=== PATIENT | female | born 1975 | race African-American/Black ===

== ENCOUNTER 2017-04-09 11:07 | Emergency (ER) | payer OTHER, SELFPAY ==
[2017-04-09] MEDS ORDERED: Ibuprofen 800 MG TAB ONE (11:23)
--- NOTE | 2017-04-09 12:01 | RAD ---
LEFT ANKLE THREE VIEWS HISTORY: Left ankle pain. COMPARISON: 12/09/2015 FINDINGS: The ankle mortise is intact. Mild osteophytosis is present. No acute fracture or dislocation. IMPRESSION: No acute osseous abnormalities are demonstrated. POS: [facility]
== END 2017-04-09 12:01 | disposition home or self-care (01) ==
LOC: NAV ERS 11:07
DX: M25.572 Pain in left ankle and joints of left foot (principal); I10 Essential (primary) hypertension; I42.9 Cardiomyopathy, unspecified; Z86.73 Personal history of transient ischemic attack (TIA), and cerebral infarction without residual deficits; Z79.01 Long term (current) use of anticoagulants; Z79.899 Other long term (current) drug therapy

== ENCOUNTER 2017-04-14 17:25 | Emergency (ER) | payer SELFPAY ==
[2017-04-14] MEDS ORDERED: Enoxaparin Sodium 100 MG/ML SYRINGE ONE (17:41)
[2017-04-14] MEDS ORDERED: Nitroglycerin 2% Ointment 1 INCH/1 GM Packet ONE (17:41)
[2017-04-14 18:31] LABS: #Basophils 0.1 thou/uL (0.0-0.2); #Eosinphils 0.2 thou/uL (0.0-0.7); #Lymphocytes 2.3 thou/uL (1.20-3.40); #Monocytes 0.7 thou/uL (0.11-0.59); #Neutrophils 4.6 thou/uL (1.40-6.50); %Basophils 1.1 % (0.0-1.0); %Eosinophils 2.2 % (0.0-10.0); %Monocytes 8.9 % (0.0-10.0); %Neutrophils 58.7 % (42.0-75.0); Hemoglobin 10.6 g/dL (12.0-16.0); Mean Corpuscular HGB CONC 30.1 g/dL (32.0-36.0); Mean Corpuscular Hemoglobin 19.6 pg (27.0-31.0); Mean Corpuscular Volume 65.2 fl (81.0-99.0); Platelet Count 171 thou/uL (130-400); RBC Distribution Width 13.3 % (11.5-14.5); Red Blood Cell (RBC) Count 5.42 mill/uL (4.20-5.40); White Blood Cell (WBC) Count 7.8 thou/uL (4.8-10.8)
[2017-04-14 18:35] LABS: Prothrombin Time 13.4 SEC (12.0-14.7)
[2017-04-14 18:37] LABS: D-Dimer Test 0.43 *mcg/mL (0.27-0.43)
[2017-04-14] MEDS ORDERED: Ondansetron HCl/PF 4 MG/2 ML Vial ONE (18:39)
[2017-04-14 18:44] LABS: ALT (SGPT) 10 U/L (8-55); AST (SGOT) 17 U/L (5-34); Albumin 3.6 g/dL (3.5-5.0); Alkaline Phosphatase 86 U/L (40-150); Anion Gap 16 mmol/L (10-20); BUN (Urea Nitrogen) 12 mg/dL (7.0-18.7); Bilirubin, Total 0.5 mg/dL (0.2-1.2); Calc. Creatinine Clearance 0 mL/min (70-130); Calcium 8.5 mg/dL (7.8-10.44); Carbon Dioxide 21 mmol/L (22-29); Chloride 108 mmol/L (98-107); Estimated GFR-MDRD Greater than 90; Globulin 3.3 g/dL (2.4-3.5); Glucose 86 mg/dL (70-105); Lipase 19 U/L (8-78); Potassium 3.5 mmol/L (3.5-5.1); Protein, Total 6.9 g/dL (6.0-8.3); Sodium 141 mmol/L (136-145)
[2017-04-14 18:45] LABS: CKMB 2.8 ng/mL (0-6.6); Troponin I Less than 0.010 ng/mL (< 0.028)
--- NOTE | 2017-04-14 18:52 | RAD ---
PORTABLE CHEST: 04/14/17 COMPARISON: 05/13/16 study. HISTORY: Chest pain. The heart size is markedly enlarged. There are postop sternotomy changes. Retrocardiac region is dif ficult to assess due to the heart size. The lungs appear clear of infiltrates. There are no signs of failure. IMPRESSION: Marked cardiomegaly. POS: [facility]
== END 2017-04-14 20:00 | disposition short-term general hospital (02) ==
LOC: NAV ERS 17:25
DX: I09.9 Rheumatic heart disease, unspecified (principal); I10 Essential (primary) hypertension; I42.9 Cardiomyopathy, unspecified; Z95.2 Presence of prosthetic heart valve
CPT/HCPCS: 71010; 80053; 82553; 83690; 83880; 84484; 85025; 85379; 85610; 93005; 96372; 96374; J1650; J2405

== ENCOUNTER 2017-10-27 09:42 | Emergency (ER) | payer OTHER, SELFPAY ==
[2017-10-27] MEDS ORDERED: Acetaminophen 500 MG TAB ONE (10:33)
--- NOTE | 2017-10-27 10:57 | RAD ---
THREE VIEWS OF THE LEFT ANKLE: INDICATION: Left ankle pain for 3 days. COMPARISON: Prior exam dated 04/09/2017. FINDINGS: No acute fracture or subluxation is evident. Enthesopathic change off of the calcaneus is similar. Ankle mortise and talar dome are preserved. IMPRESSION: No acute osseous abnormality. POS: [facility]
== END 2017-10-27 11:00 | disposition home or self-care (01) ==
LOC: NAV ERS 09:42
DX: M10.9 Gout, unspecified (principal); I10 Essential (primary) hypertension; E66.9 Obesity, unspecified; Z86.73 Personal history of transient ischemic attack (TIA), and cerebral infarction without residual deficits; Z79.899 Other long term (current) drug therapy

== ENCOUNTER 2018-01-12 09:49 | Emergency (ER) | payer OTHER ==
[2018-01-12] MEDS ORDERED: HYDROcodone/Acetaminophen 5/325 mg Tablet ONE (10:45)
[2018-01-12] MEDS ORDERED: Adacel (T-DAP) 0.5 ML VIAL ONE (10:45)
--- NOTE | 2018-01-12 11:02 | RAD ---
LEFT ANKLE 3 VIEWS: HISTORY: Bitten by a dog at the Achilles tendon area in the left ankle, left ankle pain. FINDINGS/IMPRESSION: The ankle mortise is maintained. No acute fracture or dislocation is seen. A plantar calcaneal spur is present. There is a small 7mm focal hyperdensity in the posterior soft tissues. This was not se en on the exam of 10/27/17. Clinical correlation is recommended. POS: [facility]
--- NOTE | 2018-01-12 11:05 | RAD ---
LEFT FOOT 3 VIEWS: HISTORY: Bitten by a dog, left foot pain. FINDINGS/IMPRESSION: No fracture, dislocation, or bony destruction is seen. There is a small 7mm focal hyperdensity in th e soft tissues in the posterior aspect of the ankle which was not seen on the exam of 09/24/07. Clin ical correlation is recommended. POS: [facility]
[2018-01-12] MEDS ORDERED: Clindamycin 150 MG CAP ONE (11:30)
[2018-01-12] MEDS ORDERED: Sulfameth/Trimethoprim DS 800-160mg TAB ONE (11:30)
[2018-01-12] MEDS ORDERED: Bacitracin Zinc 1 Packet ONE (11:40)
== END 2018-01-12 11:58 | disposition home or self-care (01) ==
LOC: NAV ERS 09:49
DX: S91.352A Open bite, left foot, initial encounter (principal); E66.9 Obesity, unspecified; I42.9 Cardiomyopathy, unspecified; I09.9 Rheumatic heart disease, unspecified; I10 Essential (primary) hypertension; Z86.73 Personal history of transient ischemic attack (TIA), and cerebral infarction without residual deficits; Z79.82 Long term (current) use of aspirin; Z79.899 Other long term (current) drug therapy; W54.0XXA Bitten by dog, initial encounter
CPT/HCPCS: 90471; 90715

== ENCOUNTER 2018-01-12 22:10 | Emergency (ER) | payer OTHER | END 2018-01-12 22:55 | disposition home or self-care (01) | LOC: NAV ERS 22:10 | DX: S81.852D Open bite, left lower leg, subsequent encounter (principal); I10 Essential (primary) hypertension; E66.9 Obesity, unspecified; Z79.01 Long term (current) use of anticoagulants; Z79.82 Long term (current) use of aspirin; Z86.73 Personal history of transient ischemic attack (TIA), and cerebral infarction without residual deficits; W54.0XXD Bitten by dog, subsequent encounter | CPT/HCPCS: 99282 ==

== ENCOUNTER 2018-02-16 20:16 | Emergency (ER) | payer OTHER ==
--- NOTE | 2018-02-16 21:31 | RAD ---
ACUTE ABDOMINAL SERIES: 02/16/18 Three views. INDICATION: Abdominal pain. FINDINGS: The cardiac silhouette is enlarged. There is mild prominence of pulmonary vasculature. Left lung base is obscured by the cardiac silhouette. Mild patchy right basilar opacity is seen. Bowel gas pattern is nonobstructed. Phleboliths overlie the pelvis. There is evidence of prior sternotomy. IMPRESSION: 1. Prominent cardiac silhouette. 2. No free air or evidence to indicate bowel obstruction. POS: [facility]
[2018-02-16 21:44] LABS: Bilirubin Small (Negative); Blood, Urine Negative (Negative); Glucose, Urine (Dipstick) Negative (Negative); Leukocyte Small (Negative); Nitrite Negative (Negative); Protein, Urine (Dipstick) 30 mg/dL (Neg-Trace); Specific Gravity, Urine 1.025 (1.005-1.030)
[2018-02-16 21:51] LABS: Clarity SL HAZY (Clear)
[2018-02-16 21:55] LABS: Bacteria/HPF 1+ HPF (None Seen); RBC/HPF 0-3 HPF (0-3)
== END 2018-02-16 22:25 | disposition home or self-care (01) ==
LOC: NAV ERS 20:16
DX: K59.00 Constipation, unspecified (principal); I10 Essential (primary) hypertension; E66.9 Obesity, unspecified; I34.1 Nonrheumatic mitral (valve) prolapse; I42.9 Cardiomyopathy, unspecified; Z86.73 Personal history of transient ischemic attack (TIA), and cerebral infarction without residual deficits; Z79.82 Long term (current) use of aspirin; Z79.01 Long term (current) use of anticoagulants
CPT/HCPCS: 74022; 81003; 81015; 93005

== ENCOUNTER 2018-02-24 10:18 | Emergency (ER) | payer OTHER | END 2018-02-24 11:00 | disposition home or self-care (01) | LOC: NAV ERS 10:18 | DX: K59.00 Constipation, unspecified (principal); I10 Essential (primary) hypertension; Z86.73 Personal history of transient ischemic attack (TIA), and cerebral infarction without residual deficits; E66.9 Obesity, unspecified; I34.1 Nonrheumatic mitral (valve) prolapse; Z79.82 Long term (current) use of aspirin; Z79.01 Long term (current) use of anticoagulants | CPT/HCPCS: 99283 ==

== ENCOUNTER 2018-02-28 08:20 | Emergency (ER) | payer OTHER ==
[2018-02-28] MEDS ORDERED: Iopamidol 370 76% 100 ML VIAL ONE (09:00)
[2018-02-28 09:09] LABS: Bilirubin Moderate (Negative); Blood, Urine Moderate (Negative); Clarity Slightly Cloudy (Clear); Glucose, Urine (Dipstick) Negative (Negative); Leukocyte Large (Negative); Nitrite Negative (Negative); Protein, Urine (Dipstick) > or equal to 300 mg/dL (Neg-Trace)
[2018-02-28 09:12] LABS: Specific Gravity, Urine 1.025 (1.002-1.036)
[2018-02-28] MEDS ORDERED: Ondansetron HCl/PF 4 MG/2 ML Vial ONE (09:22)
[2018-02-28] MEDS ORDERED: Sodium Chloride 0.9% 1,000 ML ONE ×2 (09:22→10:50)
[2018-02-28 09:23] LABS: Bacteria/HPF 1+ HPF (None Seen); Other Microscopic Description NO; Trichomonas/HPF 1+ HPF (None Seen)
[2018-02-28 10:05] LABS: Hemoglobin 11.1 g/dL (12.0-16.0); Mean Corpuscular HGB CONC 29.3 g/dL (32.0-36.0); Mean Corpuscular Hemoglobin 19.7 pg (27.0-31.0); Mean Corpuscular Volume 67.2 fl (81.0-99.0); Mean Platelet Volume 8.4 fL (7.4-10.4); Platelet Count 287 thou/uL (130-400); RBC Distribution Width 15.9 % (11.5-14.5); Red Blood Cell (RBC) Count 5.66 mill/uL (4.20-5.40); White Blood Cell (WBC) Count 7.8 thou/uL (4.8-10.8)
[2018-02-28 10:16] LABS: ALT (SGPT) 22 U/L (8-55); AST (SGOT) 27 U/L (5-34); Albumin 3.7 g/dL (3.5-5.0); Alkaline Phosphatase 71 U/L (40-150); Anion Gap 14 mmol/L (10-20); BUN (Urea Nitrogen) 17 mg/dL (7.0-18.7); Bilirubin, Total 2.4 mg/dL (0.2-1.2); CK (CPK) 122 U/L (29-168); Calc. Creatinine Clearance 0 mL/min (70-130); Calcium 8.7 mg/dL (7.8-10.44); Carbon Dioxide 20 mmol/L (22-29); Chloride 112 mmol/L (98-107); Estimated GFR-MDRD Greater than 90; Globulin 2.9 g/dL (2.4-3.5); Glucose 116 mg/dL (70-105); Lipase 10 U/L (8-78); Potassium 3.5 mmol/L (3.5-5.1); Protein, Total 6.6 g/dL (6.0-8.3); Sodium 142 mmol/L (136-145)
[2018-02-28 10:24] LABS: #Basophils 0.1 thou/uL (0.0-0.2); #Eosinphils 0.1 thou/uL (0.0-0.7); #Monocytes 0.9 thou/uL (0.11-0.59); #Neutrophils 4.7 thou/uL (1.40-6.50); %Basophils 1.2 % (0.0-1.0); %Eosinophils 0.9 % (0.0-10.0); %Lymphocytes 26.2 % (21.0-51.0); %Monocytes 11.1 % (0.0-10.0); %Neutrophils 60.6 % (42.0-75.0)
[2018-02-28 10:25] LABS: MDiff Complete? YES; Microcytosis MODERATE=15-30 cells (100X) (0-5/hpf); Ovalocytes MODERATE= 6-15 cells (100X) (0-1/hpf); PLT Morphology Comment Appears Adequate; Target Cells MODERATE= 6-15 cells (100X) (0-1/hpf)
[2018-02-28 10:26] LABS: Anisocytosis MODERATE=16-30 cells (100X) (0-5/hpf)
[2018-02-28] MEDS ORDERED: metroNIDAZOLE 500 MG/100 ML BAG ONE (10:49)
[2018-02-28] MEDS ORDERED: Metoprolol Tartrate 5 MG/5 ML VIAL ONE (10:51)
[2018-02-28 10:52] LABS: CKMB 2.4 ng/mL (0-6.6)
[2018-02-28 11:03] LABS: INR-International Normal Ratio 1.5; PTT 46.2 SEC (22.9-36.1); Prothrombin Time 18.5 SEC (12.0-14.7)
[2018-02-28 11:04] LABS: D-Dimer Test 2.33 *mcg/mL (0.27-0.43)
[2018-02-28] MEDS ORDERED: Furosemide 40 MG/4 ML VIAL ONE (11:35)
--- NOTE | 2018-02-28 12:07 | CT ---
CONTRAST ENHANCED CT IMAGES ABDOMEN AND PELVIS: HISTORY: Right lower quadrant pain. FINDINGS: IV contrast was given. CT images demonstrate bilateral pleural effusions. A prosthetic mitral valve is seen. There is some left ventricular and left atrial enlargement. A small pericardial effusion is seen. The liver and spleen are unremarkable. The gallbladder and pancreas are unremarkable. Adrenal gland s unremarkable. There may be some nonobstructing renal calculi on the right, difficult to determine due to the iodinated contrast in the collecting systems seen in both kidneys. No evidence or periaortic lymphadenopathy is seen. A normal appendix is seen. No significant evidence of bowel obstruction seen. No evidence of free intraperitoneal fluid or air seen. IMPRESSION: 1. Bilateral pleural effusions. 2. Pericardial effusion. POS: [facility]
== END 2018-02-28 13:37 | disposition short-term general hospital (02) ==
LOC: NAV ERS 08:20
DX: I48.91 Unspecified atrial fibrillation (principal); A59.01 Trichomonal vulvovaginitis; R17 Unspecified jaundice; I38 Endocarditis, valve unspecified; I11.0 Hypertensive heart disease with heart failure; I50.9 Heart failure, unspecified; E66.9 Obesity, unspecified; Z79.891 Long term (current) use of opiate analgesic; Z86.73 Personal history of transient ischemic attack (TIA), and cerebral infarction without residual deficits; Z79.82 Long term (current) use of aspirin
CPT/HCPCS: 74177; 80053; 81003; 81015; 82150; 82550; 82553; 83690; 83880; 84484; 85025; 85379; 85610; 85730; 87086; 93005; 94760; 96361; 96365; 96375; J1940; J2405; J7050

== ENCOUNTER 2018-04-17 12:42 | Emergency (ER) | payer OTHER, SELFPAY ==
[2018-04-17] MEDS ORDERED: Sodium Chloride 0.9% 500 ML ONE (12:56)
[2018-04-17] MEDS ORDERED: Fentanyl 100 MCG/2 ML VIAL ONE (13:08)
[2018-04-17 13:21] LABS: INR-International Normal Ratio 2.1; PTT 47.7 SEC (22.9-36.1); Prothrombin Time 23.9 SEC (12.0-14.7)
--- NOTE | 2018-04-17 13:21 | RAD ---
AP VIEW CHEST: HISTORY: Left-sided chest pain for 20 minutes. FINDINGS: AP view chest is obtained on 04/17/18. Comparison is made to previous exam from 04/14/17. AP view chest demonstrates sternotomy wires seen. Cardiomegaly noted. There is an area of opacity i n the left lung base compatible with a left-sided pleural effusion. Radiographic appearance of the c hest is stable and unchanged. The right lung is well aerated. IMPRESSION: Left-sided pleural effusion and cardiomegaly. POS: [facility]
[2018-04-17] MEDS ORDERED: Ondansetron HCl/PF 4 MG/2 ML Vial ONE (13:22)
[2018-04-17 13:23] LABS: #Basophils 0.1 thou/uL (0.0-0.2); #Eosinphils 0.2 thou/uL (0.0-0.7); #Lymphocytes 2.6 thou/uL (1.20-3.40); #Monocytes 0.8 thou/uL (0.11-0.59); #Neutrophils 4.9 thou/uL (1.40-6.50); %Basophils 1.1 % (0.0-1.0); %Eosinophils 2.5 % (0.0-10.0); %Lymphocytes 30.4 % (21.0-51.0); %Monocytes 9.5 % (0.0-10.0); %Neutrophils 56.5 % (42.0-75.0); Hemoglobin 10.5 g/dL (12.0-16.0); Mean Corpuscular HGB CONC 29.3 g/dL (32.0-36.0); Mean Corpuscular Hemoglobin 19.1 pg (27.0-31.0); Mean Corpuscular Volume 65.2 fl (81.0-99.0); Mean Platelet Volume 9.4 fL (7.4-10.4); Platelet Count 243 thou/uL (130-400); RBC Distribution Width 16.8 % (11.5-14.5); Red Blood Cell (RBC) Count 5.48 mill/uL (4.20-5.40); White Blood Cell (WBC) Count 8.6 thou/uL (4.8-10.8)
[2018-04-17 13:28] LABS: ALT (SGPT) 22 U/L (8-55); AST (SGOT) 31 U/L (5-34); Albumin 4.2 g/dL (3.5-5.0); Alkaline Phosphatase 86 U/L (40-150); Anion Gap 14 mmol/L (10-20); BUN (Urea Nitrogen) 16 mg/dL (7.0-18.7); Bilirubin, Total 1.6 mg/dL (0.2-1.2); Calc. Creatinine Clearance 0 mL/min (70-130); Calcium 9.3 mg/dL (7.8-10.44); Carbon Dioxide 22 mmol/L (22-29); Chloride 107 mmol/L (98-107); Estimated GFR-MDRD Greater than 90; Globulin 3.2 g/dL (2.4-3.5); Glucose 107 mg/dL (70-105); Potassium 3.7 mmol/L (3.5-5.1); Protein, Total 7.4 g/dL (6.0-8.3); Sodium 139 mmol/L (136-145)
[2018-04-17 13:31] LABS: CKMB 2.2 ng/mL (0-6.6); Troponin I 0.011 ng/mL (< 0.028)
== END 2018-04-17 14:34 | disposition short-term general hospital (02) ==
LOC: NAV ERS 12:42
DX: I48.91 Unspecified atrial fibrillation (principal); K59.00 Constipation, unspecified; E66.9 Obesity, unspecified; I11.0 Hypertensive heart disease with heart failure; I50.9 Heart failure, unspecified; I34.1 Nonrheumatic mitral (valve) prolapse; I09.1 Rheumatic diseases of endocardium, valve unspecified; Z86.73 Personal history of transient ischemic attack (TIA), and cerebral infarction without residual deficits; Z79.82 Long term (current) use of aspirin; Z79.899 Other long term (current) drug therapy; Z79.01 Long term (current) use of anticoagulants
CPT/HCPCS: 71045; 80053; 82553; 83880; 84484; 85025; 85610; 85730; 93005; 96374; 96375; J2405; J3010; J7050

== ENCOUNTER 2018-10-12 17:31 | Emergency (ER) | payer OTHER ==
[2018-10-12] MEDS ORDERED: Fentanyl 100 MCG/2 ML VIAL ONE ×2 (18:43→22:59)
[2018-10-12 18:47] LABS: #Basophils 0.1 thou/uL (0.0-0.2); #Eosinphils 0.2 thou/uL (0.0-0.7); #Lymphocytes 2.7 thou/uL (1.20-3.40); #Monocytes 0.6 thou/uL (0.11-0.59); #Neutrophils 3.5 thou/uL (1.40-6.50); %Basophils 1.3 % (0.0-1.0); %Eosinophils 2.5 % (0.0-10.0); %Lymphocytes 38.2 % (21.0-51.0); %Monocytes 7.9 % (0.0-10.0); %Neutrophils 50.1 % (42.0-75.0); Hemoglobin 10.8 g/dL (12.0-16.0); Mean Corpuscular HGB CONC 29.8 g/dL (32.0-36.0); Mean Corpuscular Volume 67.1 fL (78.0-98.0); Platelet Count 212 thou/uL (130-400); RBC Distribution Width 12.9 % (11.5-14.5); Red Blood Cell (RBC) Count 5.39 mill/uL (4.20-5.40)
[2018-10-12 18:49] LABS: Prothrombin Time 22.4 SEC (12.0-14.7)
[2018-10-12 18:58] LABS: ALT (SGPT) 15 U/L (8-55); AST (SGOT) 23 U/L (5-34); Alkaline Phosphatase 79 U/L (40-150); Anion Gap 14 mmol/L (10-20); BUN (Urea Nitrogen) 18 mg/dL (7.0-18.7); Bilirubin, Total 0.6 mg/dL (0.2-1.2); CK (CPK) 280 U/L (29-168); Calc. Creatinine Clearance 0 mL/min (70-130); Calcium 9.4 mg/dL (7.8-10.44); Carbon Dioxide 23 mmol/L (22-29); Chloride 109 mmol/L (98-107); Estimated GFR-MDRD Greater than 90; Globulin 3.3 g/dL (2.4-3.5); Glucose 90 mg/dL (70-105); Potassium 3.5 mmol/L (3.5-5.1); Protein, Total 7.3 g/dL (6.0-8.3); Sodium 142 mmol/L (136-145)
--- NOTE | 2018-10-12 19:28 | RAD ---
PORTABLE CHEST: 10/12/18 HISTORY: Chest pain, left arm numbness. COMPARISON: 04/17/18 study. Heart size is enlarged. There are postop sternotomy changes. The lungs are clear of infiltrates. Ther e are no signs of failure. IMPRESSION: Cardiomegaly. POS: [facility]
[2018-10-12] MEDS ORDERED: Ondansetron PF 4 MG/2 ML Vial ONE (23:31)
[2018-10-12 23:40] LABS: Troponin I Less than 0.010 ng/mL (< 0.028)
== END 2018-10-13 00:34 | disposition short-term general hospital (02) ==
LOC: NAV ERS 17:31
DX: M25.512 Pain in left shoulder (principal); I48.91 Unspecified atrial fibrillation; I11.0 Hypertensive heart disease with heart failure; I50.9 Heart failure, unspecified; Z86.73 Personal history of transient ischemic attack (TIA), and cerebral infarction without residual deficits; E66.9 Obesity, unspecified; Z79.899 Other long term (current) drug therapy; Z79.82 Long term (current) use of aspirin
CPT/HCPCS: 36415; 71045; 80053; 82550; 84484; 85025; 85610; 85730; 93005; 96374; 96375; 96376; J2405; J3010

== ENCOUNTER 2019-01-12 13:28 | Emergency (ER) | payer OTHER | END 2019-01-12 14:20 | disposition home or self-care (01) | LOC: NAV ERS 13:28 | DX: M79.604 Pain in right leg (principal); I11.0 Hypertensive heart disease with heart failure; I50.9 Heart failure, unspecified; I48.91 Unspecified atrial fibrillation; I09.9 Rheumatic heart disease, unspecified; E66.9 Obesity, unspecified; Z79.82 Long term (current) use of aspirin; Z79.899 Other long term (current) drug therapy; Z79.891 Long term (current) use of opiate analgesic | CPT/HCPCS: 99281 ==

== ENCOUNTER 2019-01-26 10:56 | Emergency (ER) | payer OTHER ==
[2019-01-26 12:12] LABS: INR-International Normal Ratio 2.1
== END 2019-01-26 12:30 | disposition home or self-care (01) ==
LOC: NAV ERS 10:56
DX: D68.8 Other specified coagulation defects (principal); I11.0 Hypertensive heart disease with heart failure; I50.9 Heart failure, unspecified; I48.91 Unspecified atrial fibrillation; E66.9 Obesity, unspecified; Z86.73 Personal history of transient ischemic attack (TIA), and cerebral infarction without residual deficits; Z79.891 Long term (current) use of opiate analgesic; Z79.899 Other long term (current) drug therapy; Z79.82 Long term (current) use of aspirin
CPT/HCPCS: 85610; 99283

== ENCOUNTER 2019-02-28 21:55 | Emergency (ER) | payer OTHER ==
[~2019-02-28 21:55] MED LIST: Iopamidol 370 76% 100 ML VIAL ONE
[2019-02-28 23:47] LABS: INR-International Normal Ratio 3.3; Prothrombin Time 33.4 SEC (12.0-14.7)
[2019-02-28 23:48] LABS: PTT 65.5 SEC (22.9-36.1)
[2019-02-28 23:55] LABS: #Basophils 0.1 thou/uL (0.0-0.2); #Eosinphils 0.2 thou/uL (0.0-0.7); #Lymphocytes 2.9 thou/uL (1.20-3.40); #Monocytes 0.6 thou/uL (0.11-0.59); #Neutrophils 3.7 thou/uL (1.40-6.50); %Basophils 1.3 % (0.0-1.0); %Eosinophils 2.5 % (0.0-10.0); %Lymphocytes 38.3 % (21.0-51.0); %Monocytes 8.5 % (0.0-10.0); %Neutrophils 49.3 % (42.0-75.0); ALT (SGPT) 21 U/L (8-55); AST (SGOT) 34 U/L (5-34); Albumin 4.1 g/dL (3.5-5.0); Alkaline Phosphatase 101 U/L (40-150); Anion Gap 14 mmol/L (10-20); Anisocytosis SLIGHT = 6-15 cells (100X) (0-5/hpf); BUN (Urea Nitrogen) 18 mg/dL (7.0-18.7); Bilirubin, Total 0.6 mg/dL (0.2-1.2); Calc. Creatinine Clearance 0 mL/min (70-130); Calcium 9.3 mg/dL (7.8-10.44); Carbon Dioxide 25 mmol/L (22-29); Chloride 107 mmol/L (98-107); Estimated GFR-MDRD 76; Globulin 3.6 g/dL (2.4-3.5); Glucose 89 mg/dL (70-105); Hemoglobin 10.1 g/dL (12.0-16.0); Hypochromia SLIGHT = 6-15 cells (100X) (0-5/hpf); MDiff Complete? YES; Mean Corpuscular HGB CONC 28.5 g/dL (32.0-36.0); Mean Corpuscular Hemoglobin 19.2 pg (27.0-31.0); Mean Corpuscular Volume 67.6 fL (78.0-98.0); Mean Platelet Volume 9.3 fL (7.4-10.4); Microcytosis MODERATE=15-30 cells (100X) (0-5/hpf); Platelet Count 203 thou/uL (130-400); Platelet Morphology Comment Appears Adequate; Protein, Total 7.7 g/dL (6.0-8.3); RBC Distribution Width 15.3 % (11.5-14.5); Red Blood Cell (RBC) Count 5.24 mill/uL (4.20-5.40); Sodium 142 mmol/L (136-145); Target Cells SLIGHT = 2-5 cells (100X) (0-1/hpf); White Blood Cell (WBC) Count 7.5 thou/uL (4.8-10.8)
[2019-03-01] MEDS ORDERED: Acetaminophen 325 MG TAB ONE (02:34)
--- NOTE | 2019-03-01 08:13 | CT ---
Preliminary Radiology Report EXAM: CT Angiography Head With Contrast EXAM DATE/TIME: 03/01/2019 12:44 AM CLINICAL HISTORY: 43 years old, female; Patient HX: C/O right side neck pain that started about 2 hours ago. Describes as sharp, non-radiating. Denies dizziness, SOB, blurry vision, past medical history includes cardiac history, congestive heart failure, past medical history includes neurological disease, CVA (09/2004), ; ; additional info: Injected twice due to catheter and tubing connection coming undone, waited 40 mins before injecting again TECHNIQUE: Imaging protocol: Axial computed tomographic angiography images of the head with intravenous contrast using CT angiography protocol. Coronal and sagittal reformatted images were created and reviewed. 3D rendering: MIP reconstructed images were created and reviewed. Radiation optimization: All CT scans at this facility use at least one of these dose optimization techniques: automated exposure control; mA and/or kV adjustment per patient size (includes targeted exams where dose is matched to clinical indication); or iterative reconstruction. Contrast material: ISOVUE 370; Contrast volume: 100 ml; Contrast route: LT AC; COMPARISON: No relevant prior studies available. FINDINGS: Right internal carotid artery: Unremarkable. Intracranial segment is patent with no significant stenosis. No aneurysm. Right anterior cerebral artery: Supplied by ACOM from left ICA vasculature. No occlusion or significant stenosis. No aneurysm. Right middle cerebral artery: Unremarkable. No occlusion or significant stenosis. No aneurysm. Right posterior cerebral artery: Unremarkable. No occlusion or significant stenosis. No aneurysm. Right vertebral artery: Unremarkable. No occlusion or significant stenosis. No aneurysm. Left internal carotid artery: Unremarkable. Intracranial segment is patent with no significant stenosis. No aneurysm. Left anterior cerebral artery: Unremarkable. No occlusion or significant stenosis. No aneurysm. Left middle cerebral artery: Unremarkable. No occlusion or significant stenosis. No aneurysm. Left posterior cerebral artery: Unremarkable. No occlusion or significant stenosis. No aneurysm. Left vertebral artery: Unremarkable. No occlusion or significant stenosis. No aneurysm. Basilar artery: Unremarkable. No occlusion or significant stenosis. No aneurysm. IMPRESSION: No large vessel occlusion or significant stenosis. No aneurysm. EXAM: CT Angiography Neck With Contrast EXAM DATE/TIME: 03/01/2019 12:44 AM CLINICAL HISTORY: 43 years old, female; Patient HX: C/O right side neck pain that started about 2 hours ago. Describes as sharp, non-radiating. Denies dizziness, SOB, blurry vision, past medical history includes cardiac history, congestive heart failure, past medical history includes neurological disease, CVA (09/2004), ; ; additional info: Injected twice due to catheter and tubing connection coming undone, waited 40 mins before injecting again TECHNIQUE: Imaging protocol: Axial computed tomographic angiography images of the neck with intravenous contrast using CT angiography protocol. 3D rendering: MIP reconstructed images were created and reviewed. Radiation optimization: All CT scans at this facility use at least one of these dose optimization techniques: automated exposure control; mA and/or kV adjustment per patient size (includes targeted exams where dose is matched to clinical indication); or iterative reconstruction. Contrast material: ISOVUE 370; Contrast volume: 100 ml; Contrast route: LT AC; COMPARISON: No relevant prior studies available. FINDINGS: VASCULATURE: Right common carotid artery: Normal. No significant stenosis. No dissection or occlusion. Right internal carotid artery: Normal. Extracranial segment is patent with no significant stenosis. No dissection or occlusion. Right external carotid artery: Normal. No occlusion or significant stenosis. Right vertebral artery: Normal. No significant stenosis. No dissection or occlusion. Left common carotid artery: Normal. No significant stenosis. No dissection or occlusion. Left internal carotid artery: Normal. Extracranial segment is patent with no significant stenosis. No dissection or occlusion. Left external carotid artery: Normal. No occlusion or significant stenosis. Left vertebral artery: Dominant. No significant stenosis. No dissection or occlusion. NECK: Bones/joints: Multilevel cervical spondylosis. Sternal sutures. Soft tissues: Normal. No significant soft tissue swelling. IMPRESSION: No significant ICA stenosis. No dissection or occlusion. COMMENT: Reference per NASCET criteria for degree of stenosis: Mild: less than 50% stenosis. Moderate: 50- 69% stenosis. Severe: 70-94% stenosis. Near occlusion: 95-99% stenosis. Thank you for allowing us to participate in the care of your patient. Dictated and Authenticated by: Ruslan Reid MD 03/01/2019 2:26 AM Central Time ([place] & [place]) FINAL REPORT ON OVERNIGHT [facility] STUDY Procedure CTA of the head and neck with and without IV contrast. Three-D reformatted images were cons tructed from the raw data. Comparisons are made with a noncontrast CT of the brain dated May 15, 2016. FINDINGS: Findings as above. Additionally, there is stable remote ischemic change consistent with a p rior left caudate head lacunar infarct. IMPRESSION: No hemodynamically significant stenosis, occlusion or aneurysmal formation demonstrated.
== END 2019-03-01 03:05 | disposition home or self-care (01) ==
LOC: NAV ERS 21:55
DX: M54.2 Cervicalgia (principal); Z86.73 Personal history of transient ischemic attack (TIA), and cerebral infarction without residual deficits; I11.0 Hypertensive heart disease with heart failure; I50.9 Heart failure, unspecified; I48.91 Unspecified atrial fibrillation; Z79.82 Long term (current) use of aspirin; Z79.899 Other long term (current) drug therapy
CPT/HCPCS: 70496; 70498; 80053; 85025; 85610; 85730; 93005; 94760; Q9967

== ENCOUNTER 2019-03-11 20:23 | Emergency (ER) | payer OTHER ==
[2019-03-11] MEDS ORDERED: diphenhydrAMINE 50 MG/ML VIAL ONE (21:02)
[2019-03-11] MEDS ORDERED: Metoclopramide HCl 10 MG/2 ML VIAL ONE (21:02)
== END 2019-03-11 21:31 | disposition left against medical advice (07) ==
LOC: NAV ERS 20:23
DX: R51 Headache (principal); Z86.73 Personal history of transient ischemic attack (TIA), and cerebral infarction without residual deficits; I48.91 Unspecified atrial fibrillation; Z79.82 Long term (current) use of aspirin; Z79.899 Other long term (current) drug therapy; Z79.51 Long term (current) use of inhaled steroids
CPT/HCPCS: 99283; J1200; J2765

== ENCOUNTER 2019-04-23 08:34 | Emergency (ER) | payer OTHER ==
[2019-04-23] MEDS ORDERED: Promethazine HCl 25 MG/ML VIAL ONE ×2 (08:54→12:02)
[2019-04-23] MEDS ORDERED: Sodium Chloride 0.9% 500 ML ONE (08:55)
[2019-04-23 09:37] LABS: #Basophils 0.1 thou/uL (0.0-0.2); #Eosinphils 0.1 thou/uL (0.0-0.7); #Lymphocytes 2.2 thou/uL (1.20-3.40); #Monocytes 0.6 thou/uL (0.11-0.59); #Neutrophils 4.7 thou/uL (1.40-6.50); %Basophils 1.2 % (0.0-1.0); %Eosinophils 1.7 % (0.0-10.0); %Lymphocytes 28.3 % (21.0-51.0); %Monocytes 7.5 % (0.0-10.0); %Neutrophils 61.3 % (42.0-75.0); Hemoglobin 10.8 g/dL (12.0-16.0); Mean Corpuscular HGB CONC 29.3 g/dL (32.0-36.0); Mean Corpuscular Hemoglobin 19.1 pg (27.0-31.0); Mean Corpuscular Volume 65.4 fL (78.0-98.0); Platelet Count 221 thou/uL (130-400); RBC Distribution Width 14.7 % (11.5-14.5); Red Blood Cell (RBC) Count 5.66 mill/uL (4.20-5.40); White Blood Cell (WBC) Count 7.7 thou/uL (4.8-10.8)
[2019-04-23 09:42] LABS: ALT (SGPT) 20 U/L (8-55); AST (SGOT) 33 U/L (5-34); Alkaline Phosphatase 110 U/L (40-150); Anion Gap 18 mmol/L (10-20); BUN (Urea Nitrogen) 20 mg/dL (7.0-18.7); Calc. Creatinine Clearance 0 mL/min (70-130); Calcium 9.1 mg/dL (7.8-10.44); Carbon Dioxide 19 mmol/L (22-29); Chloride 108 mmol/L (98-107); Estimated GFR-MDRD 90; Globulin 3.3 g/dL (2.4-3.5); Glucose 115 mg/dL (70-105); Potassium 3.4 mmol/L (3.5-5.1); Protein, Total 7.3 g/dL (6.0-8.3); Sodium 142 mmol/L (136-145)
[2019-04-23] MEDS ORDERED: Ondansetron PF 4 MG/2 ML Vial ONE (09:58)
[2019-04-23 10:01] LABS: PTT 44.5 SEC (22.9-36.1)
[2019-04-23 10:02] LABS: INR-International Normal Ratio 2.1; Prothrombin Time 23.8 SEC (12.0-14.7)
[2019-04-23] MEDS ORDERED: Carvedilol 25 MG TAB PO SCH (10:30)
--- NOTE | 2019-04-23 10:39 | RAD ---
PORTABLE CHEST 1 VIEW: DATE: 04/23/2019. TIME: 9:41 a.m. HISTORY: Atrial fibrillation. FINDINGS/IMPRESSION: Comparison is made with the exam of 10/12/2018. There are changes of median sternotomy. The heart is enlarged. there is obscuration of the left hem idiaphragm which may be due to technical factors, left lower lobe consolidation, left pleural effusio n, or a combination thereof. No pneumothoraces or ethan pulmonary edema are seen. POS: [facility]
[2019-04-23 11:07] LABS: Bilirubin Small (Negative); Blood, Urine Trace (Negative); Clarity Clear (Clear); Glucose, Urine (Dipstick) Negative (Negative); Leukocyte Trace (Negative); Nitrite Negative (Negative); Protein, Urine (Dipstick) 100 mg/dL (Neg-Trace); Specific Gravity, Urine 1.025 (1.005-1.030); pH, Urine 5.5 (5.0-9.0)
[2019-04-23 11:11] LABS: MDiff Complete? YES; Microcytosis MODERATE=15-30 cells (100X) (0-5/hpf); Ovalocytes SLIGHT = 2-5 cells (100X) (0-1/hpf); Platelet Morphology Comment Appears Adequate
[2019-04-23 11:31] LABS: Bacteria/HPF Rare-Few HPF (None Seen); RBC/HPF 0-3 HPF (0-3)
[2019-04-23] MEDS ORDERED: Furosemide 20 MG/2 ML VIAL ONE (11:35)
--- NOTE | 2019-04-23 11:45 | RAD ---
ABDOMEN 2 VIEWS: HISTORY: Abdominal pain and vomiting. FINDINGS/IMPRESSION: No free air or differential fluid levels are seen. The bowel gas pattern is unremarkable. Multiple calcifications in the pelvis are likely phleboliths. A transitional vertebra is seen. POS: [facility]
[2019-04-23] MEDS ORDERED: Sodium Chloride 0.9% 0 ML ONE (12:02)
[2019-04-23 15:22] LABS: Iron 65 ug/dL (50-170); Iron Binding Capacity, Total 311 mcg/dL (265-497)
== END 2019-04-23 14:12 | disposition home or self-care (01) ==
LOC: NAV ERS 08:34
DX: R10.2 Pelvic and perineal pain (principal); I48.91 Unspecified atrial fibrillation; R11.2 Nausea with vomiting, unspecified; I11.0 Hypertensive heart disease with heart failure; I50.9 Heart failure, unspecified; I49.9 Cardiac arrhythmia, unspecified; Z79.82 Long term (current) use of aspirin; Z86.73 Personal history of transient ischemic attack (TIA), and cerebral infarction without residual deficits; Z79.01 Long term (current) use of anticoagulants; Z79.899 Other long term (current) drug therapy
CPT/HCPCS: 71045; 74019; 80053; 81003; 81015; 83540; 83550; 83690; 83880; 84484; 85025; 85610; 85730; 93005; J1940; J2405; J2550; J3490; J7050

== ENCOUNTER 2019-04-28 12:10 | Emergency (ER) | payer OTHER ==
[2019-04-28 13:00] LABS: INR-International Normal Ratio 2.3; Prothrombin Time 25.7 SEC (12.0-14.7)
[2019-04-28 13:01] LABS: #Basophils 0.1 thou/uL (0.0-0.2); #Eosinphils 0.1 thou/uL (0.0-0.7); #Lymphocytes 2.6 thou/uL (1.20-3.40); #Monocytes 0.7 thou/uL (0.11-0.59); #Neutrophils 4.9 thou/uL (1.40-6.50); %Basophils 1.2 % (0.0-1.0); %Eosinophils 1.5 % (0.0-10.0); %Lymphocytes 30.8 % (21.0-51.0); %Monocytes 7.7 % (0.0-10.0); %Neutrophils 58.8 % (42.0-75.0); Hemoglobin 10.8 g/dL (12.0-16.0); Mean Corpuscular HGB CONC 28.7 g/dL (32.0-36.0); Mean Corpuscular Hemoglobin 19.1 pg (27.0-31.0); Mean Corpuscular Volume 66.4 fL (78.0-98.0); Mean Platelet Volume 8.8 fL (7.4-10.4); Platelet Count 238 thou/uL (130-400); RBC Distribution Width 15.9 % (11.5-14.5); Red Blood Cell (RBC) Count 5.67 mill/uL (4.20-5.40); White Blood Cell (WBC) Count 8.4 thou/uL (4.8-10.8)
--- NOTE | 2019-04-28 13:05 | RAD ---
CHEST ONE VIEW: HISTORY: Dyspnea. Comparison: 04/13/2019 FINDINGS: Cardiac silhouette: Cardiomegaly. There are sternotomy wires. Pulmonary vessels: Pulmonary vascular prominence. Costophrenic angles: Obscuration of the left hemidiaphragm due to pleural and parenchymal changes. LUNGS: Opacification in the left lung base. Pneumothorax: None Osseous abnormalities: None IMPRESSION: Congestive heart failure. Atelectasis or infiltrate in the left lung base cannot be excluded. Kimberly nued surveillance is recommended. Transcribed Date/Time: 04/28/2019 1:16 PM
[2019-04-28 13:10] LABS: ALT (SGPT) 22 U/L (8-55); AST (SGOT) 36 U/L (5-34); Alkaline Phosphatase 102 U/L (40-150); Anion Gap 16 mmol/L (10-20); BUN (Urea Nitrogen) 17 mg/dL (7.0-18.7); Calc. Creatinine Clearance 0 mL/min (70-130); Carbon Dioxide 20 mmol/L (22-29); Chloride 107 mmol/L (98-107); Estimated GFR-MDRD Greater than 90; Globulin 3.3 g/dL (2.4-3.5); Glucose 111 mg/dL (70-105); Lipase 19 U/L (8-78); Potassium 3.6 mmol/L (3.5-5.1); Protein, Total 7.3 g/dL (6.0-8.3); Sodium 139 mmol/L (136-145)
[2019-04-28] MEDS ORDERED: Ondansetron PF 4 MG/2 ML Vial ONE (13:21)
[2019-04-28] MEDS ORDERED: Fentanyl 100 MCG/2 ML VIAL ONE (13:21)
[2019-04-28] MEDS ORDERED: Metoprolol Tartrate 5 MG/5 ML VIAL ONE (13:21)
[2019-04-28] MEDS ORDERED: Furosemide 40 MG/4 ML VIAL ONE (13:22)
[2019-04-28 14:20] LABS: Bilirubin Negative (Negative); Blood, Urine Trace (Negative); Clarity Clear (Clear); Glucose, Urine (Dipstick) Negative (Negative); Leukocyte Trace (Negative); Nitrite Negative (Negative); Protein, Urine (Dipstick) Negative (Neg-Trace); Specific Gravity, Urine 1.015 (1.005-1.030); Urobilinogen 0.2 mg/dL (0.2-1.0)
[2019-04-28 14:30] LABS: RBC/HPF 0-3 HPF (0-3)
[2019-04-28 14:31] LABS: WBC/HPF 0-3 HPF (0-3)
--- NOTE | 2019-04-28 14:59 | CT ---
CT ABDOMEN AND PELVIS WITHOUT CONTRAST: HISTORY: Upper abdominal pain. COMPARISON: 02/28/2018 TECHNIQUE: Multiple contiguous axial images were obtained in a CT of the abdomen and pelvis without contrast. C oronal reformats were performed. FINDINGS: The liver, gallbladder, kidneys, adrenal glands, spleen, and pancreas are unremarkable, although eval uation is limited without IV contrast. No free air or stranding changes are seen in the abdomen or p sabrina. A small amount of free fluid in the pelvis is likely physiologic. The reproductive organs are unremarkable. The large and small bowel are unremarkable. The appendix is normal. No abdominal or pelvic lymphadenopathy is seen. There are small bilateral pleural effusions with adjacent atelectasis. The patient is status post mi tral valve repair. The abdominal wall soft tissues are unremarkable. The bones are unremarkable. IMPRESSION: 1. No evidence of acute intraabdominal/pelvic abnormality. 2. Small bilateral pleural effusions with adjacent atelectasis. POS: [facility]
== END 2019-04-28 15:29 | disposition short-term general hospital (02) ==
LOC: NAV ERS 12:10
DX: I48.91 Unspecified atrial fibrillation (principal); I11.0 Hypertensive heart disease with heart failure; I50.9 Heart failure, unspecified; R10.30 Lower abdominal pain, unspecified; J90 Pleural effusion, not elsewhere classified; Z86.73 Personal history of transient ischemic attack (TIA), and cerebral infarction without residual deficits; Z79.899 Other long term (current) drug therapy; Z79.82 Long term (current) use of aspirin
CPT/HCPCS: 71045; 74176; 80053; 81003; 81015; 83690; 83735; 83880; 84484; 85025; 85610; 93005; 94760; 96374; 96375; J1940; J2405; J3010

== ENCOUNTER 2019-06-25 09:24 | Emergency (ER) | payer OTHER ==
[2019-06-25 10:06] LABS: #Basophils 0.1 thou/uL (0.0-0.2); #Eosinphils 0.1 thou/uL (0.0-0.7); #Monocytes 0.8 thou/uL (0.11-0.59); #Neutrophils 3.5 thou/uL (1.40-6.50); %Basophils 0.8 % (0.0-1.0); %Eosinophils 2.2 % (0.0-10.0); %Lymphocytes 30.7 % (21.0-51.0); %Monocytes 11.7 % (0.0-10.0); %Neutrophils 54.6 % (42.0-75.0); Hemoglobin 10.4 g/dL (12.0-16.0); Mean Corpuscular HGB CONC 29.2 g/dL (32.0-36.0); Mean Corpuscular Hemoglobin 18.8 pg (27.0-31.0); Mean Corpuscular Volume 64.6 fL (78.0-98.0); Mean Platelet Volume 7.4 fL (7.4-10.4); Platelet Count 212 thou/uL (130-400); RBC Distribution Width 16.3 % (11.5-14.5); Red Blood Cell (RBC) Count 5.53 mill/uL (4.20-5.40); White Blood Cell (WBC) Count 6.4 thou/uL (4.8-10.8)
[2019-06-25 10:09] LABS: INR-International Normal Ratio 2.8; Prothrombin Time 29.3 SEC (12.0-14.7)
== END 2019-06-25 10:39 | disposition home or self-care (01) ==
LOC: NAV ERS 09:24
DX: H66.42 Suppurative otitis media, unspecified, left ear (principal); H72.92 Unspecified perforation of tympanic membrane, left ear; K02.9 Dental caries, unspecified; I11.0 Hypertensive heart disease with heart failure; I50.9 Heart failure, unspecified; I49.9 Cardiac arrhythmia, unspecified; I48.91 Unspecified atrial fibrillation; Z79.82 Long term (current) use of aspirin; Z79.51 Long term (current) use of inhaled steroids; Z79.01 Long term (current) use of anticoagulants; Z79.899 Other long term (current) drug therapy; Z86.73 Personal history of transient ischemic attack (TIA), and cerebral infarction without residual deficits
CPT/HCPCS: 85025; 85610; 99283

== ENCOUNTER 2019-08-23 09:03 | Emergency (ER) | payer OTHER ==
[2019-08-23] MEDS ORDERED: Silver Nitrate Application 1 EACH ONE (09:27)
== END 2019-08-23 09:43 | disposition home or self-care (01) ==
LOC: NAV ERS 09:03
DX: S61.211A Laceration without foreign body of left index finger without damage to nail, initial encounter (principal); I11.0 Hypertensive heart disease with heart failure; I50.9 Heart failure, unspecified; I48.91 Unspecified atrial fibrillation; Z79.899 Other long term (current) drug therapy; Z79.891 Long term (current) use of opiate analgesic; Z86.73 Personal history of transient ischemic attack (TIA), and cerebral infarction without residual deficits; Z79.01 Long term (current) use of anticoagulants; Z79.82 Long term (current) use of aspirin; W26.8XXA Contact with other sharp object(s), not elsewhere classified, initial encounter
CPT/HCPCS: 99282

== ENCOUNTER 2019-12-18 04:37 | Emergency (ER) | payer OTHER ==
[2019-12-18] MEDS ORDERED: Clindamycin 150 MG CAP ONE (05:18)
== END 2019-12-18 05:30 | disposition home or self-care (01) ==
LOC: NAV ERS 04:37
DX: S01.512A Laceration without foreign body of oral cavity, initial encounter (principal); I11.0 Hypertensive heart disease with heart failure; I50.9 Heart failure, unspecified; I48.91 Unspecified atrial fibrillation; I42.9 Cardiomyopathy, unspecified; Z86.73 Personal history of transient ischemic attack (TIA), and cerebral infarction without residual deficits; Z79.82 Long term (current) use of aspirin; Z79.899 Other long term (current) drug therapy; Z79.02 Long term (current) use of antithrombotics/antiplatelets; W51.XXXA Accidental striking against or bumped into by another person, initial encounter
CPT/HCPCS: 99282

== ENCOUNTER 2021-09-11 19:07 | Emergency (ER) | payer OTHER ==
[2021-09-11 20:37] LABS: #Basophils 0.1 thou/uL (0.0-0.2); #Eosinphils 0.1 thou/uL (0.0-0.7); #Monocytes 0.8 thou/uL (0.11-0.59); %Basophils 1.8 % (0.0-1.0); %Eosinophils 1.6 % (0.0-10.0); %Lymphocytes 36.4 % (21.0-51.0); %Monocytes 12.2 % (0.0-10.0); Anisocytosis MODERATE=16-30 cells (100X) (0-5/hpf); Crenated RBC SLIGHT = 1-5 cells (100X) (None Seen); Elliptocytes MODERATE= 6-15 cells (100X) (0-1/hpf); Hemoglobin 10.3 g/dL (12.0-16.0); Hypochromia MODERATE=16-30 cells (100X) (0-5/hpf); MDiff Complete? YES; Mean Corpuscular HGB CONC 27.5 g/dL (32.0-36.0); Mean Corpuscular Hemoglobin 18.3 pg (27.0-31.0); Mean Corpuscular Volume 66.7 fL (78.0-98.0); Mean Platelet Volume 6.9 fL (7.4-10.4); Microcytosis MODERATE=15-30 cells (100X) (0-5/hpf); Platelet Count 270 thou/uL (130-400); Platelet Morphology Comment Appears Adequate; Poikilocytosis MARKED = >30 cells (100X) (0-5/hpf); RBC Distribution Width 17.7 % (11.5-14.5); Red Blood Cell (RBC) Count 5.62 mill/uL (4.20-5.40); Target Cells MODERATE= 6-15 cells (100X) (0-1/hpf); Tear Drops MODERATE= 6-15 cells (100X) (0-1/hpf); White Blood Cell (WBC) Count 6.2 thou/uL (4.8-10.8)
[2021-09-11 20:41] LABS: ALT (SGPT) 21 U/L (8-55); AST (SGOT) 36 U/L (5-34); Albumin 4.1 g/dL (3.5-5.0); Alkaline Phosphatase 172 U/L (40-110); Anion Gap 18 mmol/L (10-20); BUN (Urea Nitrogen) 15 mg/dL (7.0-18.7); Bilirubin, Total 5.6 mg/dL (0.2-1.2); Calc. Creatinine Clearance 0 mL/min (70-130); Calcium 9.4 mg/dL (7.8-10.44); Carbon Dioxide 19 mmol/L (22-29); Chloride 110 mmol/L (98-107); Globulin 3.6 g/dL (2.4-3.5); Glucose 109 mg/dL (70-105); Potassium 3.7 mmol/L (3.5-5.1); Protein, Total 7.7 g/dL (6.0-8.3); Sodium 143 mmol/L (136-145)
[2021-09-11 20:56] LABS: CKMB 2.8 ng/mL (0-6.6)
[2021-09-11 21:12] LABS: INR-International Normal Ratio 2.6; PTT 42.6 sec (22.9-36.1); Prothrombin Time 28.1 sec (12.0-14.7)
[2021-09-11] MEDS ORDERED: Nitroglycerin 2% Ointment 1 INCH/1 GM Packet ONE (21:15)
[2021-09-11] MEDS ORDERED: Furosemide 40 MG/4 ML VIAL ONE (21:15)
[2021-09-11] MEDS ORDERED: Ondansetron ODT 4 MG TAB ONE (22:48)
== END 2021-09-11 23:05 | disposition short-term general hospital (02) ==
LOC: NAV ERS 19:07
DX: I11.0 Hypertensive heart disease with heart failure (principal); I50.9 Heart failure, unspecified; R10.84 Generalized abdominal pain; I48.91 Unspecified atrial fibrillation; D50.9 Iron deficiency anemia, unspecified; R63.8 Other symptoms and signs concerning food and fluid intake; R11.0 Nausea; I38 Endocarditis, valve unspecified; Z86.73 Personal history of transient ischemic attack (TIA), and cerebral infarction without residual deficits
CPT/HCPCS: 71045; 80053; 82553; 83880; 84484; 85025; 85610; 85730; 93005; 96374; 96375; J1940; Q0162

== ENCOUNTER 2022-07-03 09:22 | Emergency (ER) | payer OTHER ==
[2022-07-03] MEDS ORDERED: Furosemide 40 MG/4 ML VIAL ONE (10:17)
[2022-07-03] MEDS ORDERED: Ondansetron PF 4 MG/2 ML Vial ONE (10:17)
[2022-07-03 10:27] LABS: INR-International Normal Ratio 1.4; PTT 36.4 sec (22.9-36.1); Prothrombin Time 17.7 sec (12.0-14.7)
[2022-07-03 10:34] LABS: ALT (SGPT) 12 U/L (8-55); AST (SGOT) 27 U/L (5-34); Albumin 3.7 g/dL (3.5-5.0); Alkaline Phosphatase 177 U/L (40-110); Anion Gap 17 mmol/L (10-20); BUN (Urea Nitrogen) 15 mg/dL (7.0-18.7); Bilirubin, Total 7.2 mg/dL (0.2-1.2); Calc. Creatinine Clearance 0 mL/min (70-130); Calcium 9.1 mg/dL (7.8-10.44); Carbon Dioxide 19 mmol/L (22-29); Chloride 109 mmol/L (98-107); Estimated GFR 81; Globulin 4.2 g/dL (2.4-3.5); Glucose 115 mg/dL (70-105); Lipase 24 U/L (8-78); Potassium 3.2 mmol/L (3.5-5.1); Protein, Total 7.9 g/dL (6.0-8.3); Sodium 142 mmol/L (136-145)
[2022-07-03 10:35] LABS: Hemoglobin 9.2 g/dL (12.0-16.0); Mean Corpuscular HGB CONC 27.2 g/dL (32.0-36.0); Mean Corpuscular Volume 66.4 fL (78.0-98.0); Mean Platelet Volume 10.5 fL (7.4-10.4); Platelet Count 224 thou/uL (130-400); RBC Distribution Width 19.4 % (11.5-14.5); Red Blood Cell (RBC) Count 5.08 mill/uL (4.20-5.40); White Blood Cell (WBC) Count 5.8 thou/uL (4.8-10.8)
[2022-07-03 10:36] LABS: #Basophils 0.1 thou/uL (0.0-0.2); #Eosinphils 0.1 thou/uL (0.0-0.7); #Lymphocytes 1.2 thou/uL (1.20-3.40); #Monocytes 0.8 thou/uL (0.11-0.59); #Neutrophils 3.7 thou/uL (1.40-6.50); %Eosinophils 1.6 % (0.0-10.0); %Lymphocytes 21.2 % (21.0-51.0); %Monocytes 12.9 % (0.0-10.0); %Neutrophils 63.4 % (42.0-75.0)
[2022-07-03] MEDS ORDERED: Enoxaparin Sodium 100 MG/ML SYRINGE ONE (12:18)
[2022-07-03 12:23] LABS: Bilirubin Negative (Negative); Blood, Urine Trace (Negative); Clarity Clear (Clear); Glucose, Urine (Dipstick) Negative (Negative); Ketone, Urine Negative (Negative); Leukocyte Negative (Negative); Nitrite Negative (Negative); Protein, Urine (Dipstick) Negative (Neg-Trace); Urobilinogen 0.2 mg/dL (Less than 2); pH, Urine 5.5 (5.0-9.0)
[2022-07-03 12:33] LABS: RBC/HPF 0-3 HPF (0-3); WBC/HPF 0-3 HPF (0-3)
[2022-07-03 12:50] LABS: SARS-CoV-2 NAA Rapid Test Not Detected (NotDetected)
[2022-07-03] MEDS ORDERED: Sodium Chloride 0.9% 100 ML ONE (15:48)
[2022-07-03] MEDS ORDERED: Diltiazem 125 MG/25 ML ONE (15:48)
== END 2022-07-03 18:12 | disposition short-term general hospital (02) ==
LOC: NAV ERS 09:22
DX: I11.0 Hypertensive heart disease with heart failure (principal); I50.9 Heart failure, unspecified; I48.91 Unspecified atrial fibrillation; Z20.822 Contact with and (suspected) exposure to COVID-19; Z79.899 Other long term (current) drug therapy
CPT/HCPCS: 71045; 80053; 81003; 81015; 83690; 83880; 84484; 85025; 85610; 85730; 93005; 96365; 96366; 96372; 96375; 96376; J1650; J1940; J2405; U0002

== ENCOUNTER 2025-07-16 20:35 | Emergency (ER) | payer OTHER ==
[2025-07-16] MEDS ORDERED: Fleet Saline Enema 133 ML BOT ONE (21:37)
[2025-07-16 22:28] LABS: ALT (SGPT) 11 U/L (Less than 34); AST (SGOT) 54 U/L (11-34); Albumin 4.1 g/dL (3.1-4.5); Alkaline Phosphatase 138 U/L (40-110); Anion Gap 23 mmol/L (10-20); BUN (Urea Nitrogen) 21 mg/dL (9.8-20.1); Bilirubin, Total 4.3 mg/dL (0.3-1.2); Calc. Creatinine Clearance 0 mL/min (70-130); Calcium 9.1 mg/dL (7.8-10.44); Carbon Dioxide 17 mmol/L (22-29); Chloride 106 mmol/L (98-107); Globulin 4.2 g/dL (2.4-3.5); Glucose 98 mg/dL (70-105); Lipase 43 U/L (8-78); Potassium 4.3 mmol/L (3.5-5.1); Sodium 142 mmol/L (136-145)
== END 2025-07-17 01:26 | disposition home or self-care (01) ==
LOC: NAV ERS 20:35
DX: K59.00 Constipation, unspecified (principal); E80.6 Other disorders of bilirubin metabolism; E87.20 Acidosis, unspecified; I11.0 Hypertensive heart disease with heart failure; I50.9 Heart failure, unspecified; Z86.73 Personal history of transient ischemic attack (TIA), and cerebral infarction without residual deficits; Z55.6 Problems related to health literacy; Z79.899 Other long term (current) drug therapy
CPT/HCPCS: 74176; 80053; 83690; 93005